=== PATIENT | female | born 1955 | race Caucasian/White ===

== ENCOUNTER 2018-08-06 12:34 | Emergency (ER) | payer BC ==
[2018-08-06 12:50] VITALS: BP 153/92
--- NOTE | 2018-08-06 13:37 | UC ---
Throat Pain/Nasal Rylan HPI - HPI Summary HPI Summary: 3 DAYS OF LEFT-SIDED SORE THROAT, LEFT EAR PAIN AND MILD COUGH. GLAND FEEL SWOLLEN. NO FEVER. - History of Current Complaint Chief Complaint: UCRespiratory Stated Complaint: SORE THROAT Time Seen by Provider: 08/06/18 13:00 Hx Obtained From: Patient Onset/Duration: Gradual Onset, Lasting Days, Still Present Severity: Mild Pain Intensity: 2 Pain Scale Used: 0-10 Numeric Cough: Nonproductive Associated Signs & Symptoms: Negative: Fever - Allergies/Home Medications Allergies/Adverse Reactions: Allergies Allergy/AdvReac Type Severity Reaction Status Date / Time neomycin Allergy Swelling Verified 08/06/18 12:50 Home Medications: Home Medications Biotin 1 mg PO DAILY 08/06/18 [History Confirmed 08/06/18] Brinzolamid/Brimonidin OPH(NF) [Simbrinza OPH.SUSP(NF)] 1 drop OPHTHALMIC DAILY 08/06/18 [History Confirmed 08/06/18] Cholecalciferol (Vitamin D3) [Vitamin D3] 1,000 unit PO DAILY 08/06/18 [History Confirmed 08/06/18] Cyanocobalamin (Vitamin B-12) [Vitamin B-12] 1,000 mcg PO DAILY 08/06/18 [ History Confirmed 08/06/18] Fluocinonide 0.05% CM (NF) [Lidex 0.05% CREAM (NF)] 1 applic TOPICAL DAILY PRN 08/06/18 [History Confirmed 08/06/18] Gabapentin [Neurontin] 100 mg PO TID PRN 08/06/18 [History Confirmed 08/06/18] Insulin Glargine,Hum.rec.anlog [Basaglar Kwikpen U-100] 12 unit SUBCUT DAILY [History Confirmed 08/06/18] Magnesium Oxide [Mag-Oxide] 2 tab PO QPM 08/06/18 [History Confirmed 08/06/18] Pyridoxine HCl (Vitamin B6) [Vitamin B-6] 100 mg PO DAILY 08/06/18 [History Confirmed 08/06/18] Telmisartan 40 mg PO DAILY 08/06/18 [History Confirmed 08/06/18] Timolol [Betimol] 0.5 % OP DAILY 08/06/18 [History Confirmed 08/06/18] Ubidecarenone [Co Q-10] 200 mg PO DAILY 08/06/18 [History Confirmed 08/06/18] PMH/Surg Hx/FS Hx/Imm Hx - Additional Past Medical History Additional PMH: GLAUCOMA Endocrine History: Diabetes Cardiovascular History: Hypertension - Surgical History Surgical History: Yes Surgery Procedure, Year, and Place: cataracts, pt has a drain in rt eye. bunionectomy - both feet. drain in right eye - Family History Known Family History: Positive: Unknown - Social History Alcohol Use: Occasionally Substance Use Type: None Smoking Status (MU): Never Smoked Tobacco Review of Systems All Other Systems Reviewed And Are Negative: Yes Constitutional: Positive: Negative ENT: Positive: Sore Throat, Ear Ache Respiratory: Positive: Cough Cardiovascular: Positive: Negative Gastrointestinal: Positive: Negative Physical Exam Triage Information Reviewed: Yes Appearance: Well-Appearing, No Pain Distress, Well-Nourished Vital Signs: Initial Vital Signs Temp 95.6 F 08/06/18 12:41 Pulse 83 08/06/18 12:41 Resp 18 08/06/18 12:41 BP 153/92 08/06/18 12:41 Pulse Ox 98 08/06/18 12:41 Vital Signs Reviewed: Yes Eyes: Positive: Conjunctiva Clear ENT: Positive: Hearing grossly normal, Pharynx normal Neck: Positive: Supple, Nontender, No Lymphadenopathy Respiratory Exam: Normal Cardiovascular Exam: Normal Abdomen Description: Positive: Soft Musculoskeletal: Positive: No Edema Neurological: Positive: Alert Psychological: Positive: Age Appropriate Behavior Skin: Negative: Rashes Throat Pain/Nasal Course/Dx - Differential Dx/Diagnosis Provider Diagnoses: ACUTE PHARYNGITIS Discharge - Sign-Out/Discharge Documenting (check all that apply): Patient Departure All imaging exams completed and their final reports reviewed: No Studies - Discharge Plan Condition: Stable Disposition: HOME Prescriptions: Chlorhexidine MW 0.12% 473ML* [Peridex Mouth Wash 0.12%*] 15 ml SWISH SPIT BID # 1 bottle Patient Education Materials: Pharyngitis (ED) Referrals: Donaldo Arthur DO [Primary Care Provider] - If Needed Additional Instructions: NO SIGNIFICANT ABNORMALITY SEEN ON PHYSICAL EXAM TODAY. YOU MAY BE SUFFERING FROM AN EARLY VIRAL RESPIRATORY INFECTION. I WOULD ADVISE CONSERVATIVE MANAGEMENT. STAY WELL HYDRATED. OTC MEDS NEEDED FOR DISCOMFORT. FOLLOW UP WITH YOUR PCP OR ENT IF YOU'RE NOT IMPROVING EXPECTED. [facility] [place] [address] [facility] [phone] - Billing Disposition and Condition Condition: STABLE Disposition: Home
== END 2018-08-06 13:39 | disposition home or self-care (01) ==
LOC: UCEAST 12:34
DX: J02.9 Acute pharyngitis, unspecified (principal); H92.02 Otalgia, left ear; R05 Cough; R59.0 Localized enlarged lymph nodes; E11.9 Type 2 diabetes mellitus without complications; I10 Essential (primary) hypertension; H40.9 Unspecified glaucoma; Z88.1 Allergy status to other antibiotic agents; Z79.4 Long term (current) use of insulin
CPT/HCPCS: 99212; G0463